=== PATIENT | male | born 1985 | race African-American/Black ===

== ENCOUNTER → 2017-07-21 | Outpatient (CLI) | payer BC, OTHER ==
[2015-08-31 21:54] VITALS: BP 143/80
[~2017-07-21] MED LIST: DEXT5TAB27 PO
--- NOTE | 2017-07-21 15:48 | RAD ---
2 views of the Chest 07/21/2017 2:00 AM Indication: COUGH X'S 3 DAYS Comparison: Chest radiograph August 31, 2015 Findings: No pneumothorax or pleural effusion is seen. Heart size is normal. Bony thorax is intact. There is mild peribronchial cuffing noted without focal consolidation. Findings could represent a bronchitis or bronchiolitis. Impression: Mild peribronchial cuffing which could represent bronchitis or bronchiolitis.
== END | disposition home or self-care (01) ==
LOC: RAD 11:37
PROVIDERS: ATTEND Physician Assistant
DX: R91.8 Other nonspecific abnormal finding of lung field (principal); R05 Cough
CPT/HCPCS: 71020

== ENCOUNTER → 2019-04-15 | Outpatient (CLI) | payer BC ==
[2015-08-31 21:54] VITALS: BP 143/80
--- NOTE | 2019-04-15 16:15 | RAD ---
EXAM: Right foot, 3 views. HISTORY: Pain status post popping noise. COMPARISON: None. FINDINGS: 3 views of the right foot are obtained. There is no fracture, dislocation or subluxation. There is a small accessory navicular. There is a tiny plantar spur. IMPRESSION: No acute osseous finding. Electronically signed by: Florencia Bell MD (04/15/2019 4:12 PM) [facility]
== END | disposition home or self-care (01) ==
LOC: DXRAD 15:42
PROVIDERS: ATTEND Registered Nurse
DX: M77.51 Other enthesopathy of right foot and ankle (principal)
CPT/HCPCS: 73630